=== PATIENT | female | born 1985 | race Caucasian/White ===

== ENCOUNTER 2018-12-08 20:55 | Observation (INO) ==
[2018-12-08] MEDS ORDERED: ASPIRIN 325 MG TABLET PO STA (22:00)
[2018-12-08] MEDS ORDERED: ONDANSETRON 4 MG/2 ML VIAL IV STA (22:00)
[2018-12-08 22:06] LABS: Basophils # 0.1 10*3/uL (0.0-0.2); Eosinophils # 0.5 10*3/uL (0.0-0.87); Hemoglobin 13.3 GM/DL (12.0-16.0); Immature Granulocytes % 0.4 %; Immature Granulocytes Absolute 0.05 #; Lymphocytes # 4.8 10*3/uL (1.4-4.0); Lymphocytes % 43.1 % (21.3-54.2); Mean Corpuscular HGB Conc 32.4 GM/DL (32-36); Mean Corpuscular Volume 88.6 FL (87-102); Mean Platelet Volume 10.8 FL (9.6-12.0); Monocytes % 4.7 % (1.7-12.7); Neutrophils % 46.8 % (38.7-73.9); Platelet Count 409 T/CUMM (130-400); Red Blood Count 4.63 MC/CUMM (3.8-5.5); Red Cell Distribution Width 14.7 % (9.3-17.3); White Blood Count 11.2 T/CUMM (4-12)
[2018-12-08] MEDS: NITROGLYCERIN SL 0.4 MG TABLET SL PRN (22:10)
[2018-12-08 22:26] LABS: Albumin 3.6 G/DL (3.4-5.0); Bilirubin,Total 0.6 MG/DL (0.2-1.0); Calcium 8.9 MG/DL (8.5-10.1); Osmolality,Calculated 278.2 MOS/KG (273-304); Total Protein 8.1 G/DL (6.4-8.3)
[2018-12-08] MEDS ORDERED: SODIUM CHLORIDE 0.9% 1,000 ML IV STA (22:34)
[2018-12-09] MEDS ORDERED: COLCHICINE 0.6 MG CAPSULE PO STA (00:11)
[2018-12-09] MEDS: NITROGLYCERIN SL 0.4 MG TABLET SL PRN (00:50)
[2018-12-09] MEDS ORDERED: ACETAMINOPHEN 325 MG TABLET PO PRN (01:42)
[2018-12-09] MEDS ORDERED: DEXTROSE 50% 25 GM/50 ML VIAL IV PRN (01:42)
[2018-12-09] MEDS ORDERED: ONDANSETRON 4 MG/2 ML VIAL IV PRN (01:42)
[2018-12-09] MEDS ORDERED: ALPRAZolam 0.5 MG TABLET PO PRN (01:46)
[2018-12-09 04:18] LABS: Basophils # 0.1 10*3/uL (0.0-0.2); Eosinophils # 0.5 10*3/uL (0.0-0.87); Eosinophils % 4.7 % (0.00-10.9); Hematocrit 36.7 VOL% (35.7-47.0); Hemoglobin 11.8 GM/DL (12.0-16.0); Immature Granulocytes % 0.4 %; Immature Granulocytes Absolute 0.04 #; Lymphocytes # 4.4 10*3/uL (1.4-4.0); Lymphocytes % 41.3 % (21.3-54.2); Mean Corpuscular HGB Conc 32.2 GM/DL (32-36); Mean Corpuscular Volume 90.4 FL (87-102); Monocytes % 4.8 % (1.7-12.7); Neutrophils % 47.8 % (38.7-73.9); Platelet Count 340 T/CUMM (130-400); Red Blood Count 4.06 MC/CUMM (3.8-5.5); Red Cell Distribution Width 14.8 % (9.3-17.3); White Blood Count 10.6 T/CUMM (4-12)
[2018-12-09] MEDS ORDERED: LEVOTHYROXINE 75 MCG TABLET PO SCH (06:30)
[2018-12-09] MEDS ORDERED: LEVOTHYROXINE 200 MCG TABLET PO SCH ×2 (06:30→13:55)
[2018-12-09 06:46] LABS: Albumin 3.4 G/DL (3.4-5.0); Bilirubin,Total 0.4 MG/DL (0.2-1.0); Calcium 9.2 MG/DL (8.5-10.1); Osmolality,Calculated 286.7 MOS/KG (273-304); Total Protein 6.9 G/DL (6.4-8.3)
[2018-12-09] MEDS: ENOXAPARIN 40 MG/0.4 ML SYRINGE SUBCUT SCH (11:35)
[2018-12-09] MEDS: INSULIN LISPRO 100 UNIT/ML SUBCUT SCH ×4 (12:32→22:14)
[2018-12-09] MEDS: LOSARTAN 50 MG TABLET PO SCH (12:54)
[2018-12-09] MEDS ORDERED: INSULIN GLARGINE 100 UNIT/ML SUBCUT SCH (21:00)
[2018-12-09] MEDS ORDERED: ROSUVASTATIN 20 MG TABLET PO SCH (21:00)
[2018-12-10] MEDS: INSULIN LISPRO 100 UNIT/ML SUBCUT SCH ×2 (08:46→12:25)
[2018-12-10] MEDS: ENOXAPARIN 40 MG/0.4 ML SYRINGE SUBCUT SCH (08:46)
[2018-12-10 08:53] VITALS: BP 106/55
[2018-12-10] MEDS ORDERED: CHOLECALCIFEROL 1,000 UNIT TABLET PO SCH (09:00)
[2018-12-10] MEDS: LOSARTAN 50 MG TABLET PO SCH (09:53)
[2018-12-10] MEDS ORDERED: COLCHICINE 0.6 MG CAPSULE PO SCH (21:00)
[2018-12-11] MEDS ORDERED: COLCHICINE 0.6 MG CAPSULE PO SCH (09:00)
== END 2018-12-10 12:18 | disposition home or self-care (01) ==
LOC: N.EDINP 20:55 → N.ED 20:55 → N.TELEN 12-09 00:29
PROVIDERS: ADMIT Hospitalist; ATTEND Hospitalist